=== PATIENT | female | born 1990 | race Caucasian/White ===

== ENCOUNTER 2017-06-13 11:13 | Inpatient (IN) | payer OTHER ==
[2017-06-13] MEDS ORDERED: Lidocaine 1% (PF) 30 ML VIAL ONE (11:47)
[2017-06-13] MEDS ORDERED: LR / Pitocin 40 units/1000 ml 1,000 ML ONE (11:47)
[2017-06-13] MEDS ORDERED: Lidocaine 1% (PF) 30 ML VIAL SC PRN (12:16)
[2017-06-13] MEDS ORDERED: LR / Pitocin 40 units/1000 ml 1,000 ML IV PRN (12:16)
[2017-06-13] MEDS ORDERED: Lactated Ringer's 1,000 ML IV PRN (12:16)
[2017-06-13] MEDS ORDERED: HYDROcodone/Acetaminophen 5/325 mg Tablet PO PRN ×4 (12:16→20:44)
[2017-06-13] MEDS ORDERED: Promethazine HCl 25 MG/ML VIAL IM PRN (12:16)
[2017-06-13] MEDS ORDERED: Ondansetron HCl/PF 4 MG/2 ML Vial IVP PRN ×2 (12:16→20:44)
[2017-06-13] MEDS ORDERED: Ibuprofen 800 MG TAB PO PRN (12:16)
[2017-06-13 12:27] LABS: Mean Corpuscular HGB CONC 34.9 g/dL (32.0-36.0); Mean Corpuscular Hemoglobin 31.5 pg (27.0-31.0); Mean Corpuscular Volume 90.2 fl (81.0-99.0); Mean Platelet Volume 8.5 fL (7.4-10.4); Platelet Count 187 thou/uL (130-400); RBC Distribution Width 12.1 % (11.5-14.5); Red Blood Cell (RBC) Count 4.13 mill/uL (4.20-5.40); White Blood Cell (WBC) Count 15.1 thou/uL (4.8-10.8)
[2017-06-13 13:08] LABS: HBSAg Index 0.15 S/CO (0-0.99); Hep B Surf Ag Non-Reactive S/CO (NonReactive)
[2017-06-13 14:28] VITALS: BMI 33.6
[2017-06-13 16:42] LABS: Syphilis Antibody Nonreactive (Nonreactive); Syphilis Antibody Index 0.03 S/CO (<1.00 Non-Reactive)
--- NOTE | 2017-06-13 17:20 | PDOC.LDHP ---
Labor and Delivery H&P Chief complaint: contractions HPI: patient started rosa around 0600. Denies LOF and VB. reports +FM. coping well with contractions. Current gestational age (weeks): 39 Due date: 06/19/17 Dating criteria: first trimester ultrasound (size > dates on first trimester US) Grav: 3 Para: 2 OB History Details: #1 38 weeks 7#5oz M #2 40 week 7&2oz Male #3 current Current complications: none Abnormal US findings: No Past Medical History: kidney sotnes in 2005 abnormal pap smear 2015 - nml f/up pap Current medications: pre- vitamins Previous surgical history: cholecystectomy (2004) Allergies/Adverse Reactions: Allergies Allergy/AdvReac Type Severity Reaction Status Date / Time Sulfa (Sulfonamide Allergy Verified 08/16/15 17:45 Antibiotics) Social history: none - Physical Exam Vital signs reviewed and normal: yes General: breathing through contractions Heart: RRR Lungs: CTAB Abdomen: gravid Extremeties: no edema FHT: category 1 - Vaginal Exam cm dilated: 7 (by RN on admission) Effacement: 90% Station: -1 - OB Labs Blood type: A RH: positive Antibody Screen: negative HIV: negative RPR: negative HEPSAg: negative 1 hour GCT: negative GBS: negative Urine drug screen: not done Rubella: immune - Assessment L&D Assessment: term patient in labor - Plan Plan: admit to L&D
--- NOTE | 2017-06-13 17:26 | PDOC.LDPN ---
Labor & Delivery Progress Note - Subjective Subjective: comfortable (coping well with contractions) - Objective General: breathing through contractions Uterine fundus: non tender Dilation: 8 Effacement: 100% Station: -1 FHT: category 1 AROM: meconium stained fluid (thick mec) Resuscitative measures: maternal IV fluids - Assessment (1) 39 weeks gestation of Code(s): Z3A.39 - 39 WEEKS GESTATION OF Current Visit: Yes Status : Acute (2) Thick meconium stained amniotic fluid Code(s): P96.83 - MECONIUM STAINING Current Visit: Yes Status: Acute Plan: continue plan of care (Launched to continuous monitoring. Nursery notified of thick meconium. ), resuscitative measures (IV fluids)
--- NOTE | 2017-06-13 17:27 | PDOC.OPDEL ---
OB Operative/Delivery Note Delivery Dr/Surgeon: Light Pre-Delivery Diagnosis: active labor Procedure/Post Delivery Dx: spontaneous vaginal delivery Weeks gestation: 39 Anesthesia: none - Findings A Sex: male - 1 min: 8 - 5 min: 9 - Additional Findings/Plan Placenta delivered: spontaneous Repaired Obstetrical Laceration: none Estimated blood loss: 300mL Post delivery plan: routine recovery
[2017-06-13] MEDS ORDERED: LR / Pitocin 40 units/1000 ml 1,000 ML IV SCH (20:44)
[2017-06-13] MEDS ORDERED: Methylergonovine 0.2 MG/ML VIAL IM PRN (20:44)
[2017-06-13] MEDS ORDERED: Lanolin Ointment 7 GM TUBE TOP PRN (20:44)
[2017-06-13] MEDS ORDERED: Bisacodyl 10 MG SUPP PR PRN (20:44)
[2017-06-13] MEDS ORDERED: Milk Of Magnesia 30 ML UDCUP PO PRN (20:44)
[2017-06-13] MEDS ORDERED: Benzocaine/Menthol 20-0.5% 60 ML CAN TOP PRN (20:44)
[2017-06-13] MEDS ORDERED: Varicella virus, LIVE 0.5 ML VIAL SC ONE (20:44)
[2017-06-13] MEDS ORDERED: Misoprostol 200 MCG TAB VAG PRN (20:44)
[2017-06-13] MEDS ORDERED: Adacel (T-DAP) 0.5 ML VIAL IM ONE (20:44)
[2017-06-13] MEDS: Ibuprofen 800 MG TAB PO SCH (22:22)
[2017-06-13] MEDS: Docusate Calcium (SURFAK) 240 MG CAP PO SCH (22:22)
[2017-06-14] MEDS: Ibuprofen 800 MG TAB PO SCH ×2 (05:20→13:20)
[2017-06-14 05:58] LABS: Hemoglobin 11.6 g/dL (12.0-16.0); Mean Corpuscular HGB CONC 33.8 g/dL (32.0-36.0); Mean Corpuscular Hemoglobin 31.1 pg (27.0-31.0); Mean Platelet Volume 8.5 fL (7.4-10.4); Platelet Count 189 thou/uL (130-400); RBC Distribution Width 12.1 % (11.5-14.5); Red Blood Cell (RBC) Count 3.74 mill/uL (4.20-5.40); White Blood Cell (WBC) Count 15.4 thou/uL (4.8-10.8)
[2017-06-14] MEDS: Docusate Calcium (SURFAK) 240 MG CAP PO SCH (08:39)
[2017-06-14] MEDS: Ferrous Sulfate 325 MG TAB PO SCH ×2 (08:40→09:42)
[2017-06-14 11:39] VITALS: BP 121/79; TEMP 97.9
== END 2017-06-14 19:00 | disposition home or self-care (01) | DRG 775 ==
LOC: L&D/OP 11:13 → L&D-LIB 11:45 → 3SW 20:07
PROVIDERS: ADMIT Student in an Organized Health Care Education/Training Program; ATTEND Student in an Organized Health Care Education/Training Program
PROC: 10E0XZZ Delivery of Products of Conception, External Approach (ICD-10-PCS; principal; 2017-06-13)
DX: O77.0 Labor and delivery complicated by meconium in amniotic fluid (principal); Z37.0 Single live birth; Z3A.39 39 weeks gestation of pregnancy
CPT/HCPCS: 36415; 85027; 86780; 87340; 99285; J2001

== ENCOUNTER 2019-02-11 14:42 | Outpatient (CLI) | payer OTHER ==
--- NOTE | 2019-02-11 17:01 | ULT ---
ABDOMINAL ULTRASOUND: 02/11/19 INDICATIONS: Abnormal liver function test. The patient is post cholecystectomy in 2002. Common duct is prominent but normal caliber for post cho lecystectomy status. The liver appears unremarkable with no focal liver lesion. Spleen is mildly enlarged measuring 13 cm. The visualized aorta and IVC unremarkable. The visualized pancreas unremarkable although pancreas is mostly obscured. Left kidney is unremarkable. No hydronephrosis. IMPRESSION: Borderline splenomegaly. Exam otherwise unremarkable. POS: [facility]
== END 2019-02-11 14:43 | disposition home or self-care (01) ==
LOC: ULT 14:42
PROVIDERS: ATTEND Nurse Practitioner Family
DX: R94.5 Abnormal results of liver function studies (principal); R82.998 Other abnormal findings in urine; R11.0 Nausea; R16.1 Splenomegaly, not elsewhere classified
CPT/HCPCS: 76700

== ENCOUNTER 2019-02-25 11:41 | Day surgery (SDC) | payer OTHER ==
[2019-02-24 11:46] VITALS: BMI 32.5
[2019-02-25] MEDS ORDERED: Levofloxacin 500 mg/D5W 100 ml Premix Bag ONE (13:24)
[2019-02-25] MEDS ORDERED: Iothalamate Meglumine 60% 50 ML VIAL FS ONE (13:44)
[2019-02-25] MEDS ORDERED: Indomethacin 50 MG SUPP ONE (13:44)
[2019-02-25] MEDS ORDERED: cefTRIAXone\\ROCEPHIN 2 GM VIAL ONE (13:57)
[2019-02-25] MEDS ORDERED: Sodium Chloride 0.9% 100 ML ONE (13:57)
--- NOTE | 2019-02-25 15:13 | RAD ---
EXAM: XR ERCP PROVIDED CLINICAL HISTORY: Elevated liver function tests, itching. COMPARISON: None FINDINGS/IMPRESSION: 7 intraoperative fluoroscopic images from ERCP are submitted for interpretation. Initial image demons trates cannulation of the common duct with opacification of the common duct and intrahepatic bile ducts. There is mild dilatation of the common duct and most proximal intrahepatic bile ducts. There i s a rounded filling defect seen at the confluence of the right and left hepatic ducts which may represent a small calculus versus gas bubble. Subsequent imaging demonstrates balloon catheter in [place] ce within the distal common duct. Images demonstrating free spill of contrast into the duodenum are not submitted for interpretation. Surgical clips related to cholecystectomy are noted. Correlation wi intraoperative findings is recommended.
[2019-02-25] MEDS ORDERED: Promethazine HCl 25 MG/ML VIAL ONE (15:19)
--- NOTE | 2019-02-25 18:14 | OP ---
DATE OF PROCEDURE: 02/25/2019 PROCEDURES PERFORMED: Endoscopic retrograde cholangiopancreatography with sphincterotomy and stone extraction. PREMEDICATION: Given by Anesthesiology Department. PREPROCEDURE DIAGNOSES: 1. Abnormal liver function tests. 2. Epigastric pain followed by jaundice and dark urine, suggestive choledocholithiasis. POSTPROCEDURE DIAGNOSIS: Choledocholithiasis. DESCRIPTION OF PROCEDURE: Written consents were obtained prior to procedure. Risks, not limited to bleeding, perforation, and pancreatitis were discussed with the patient in clinic prior to scheduling. After adequate sedation, a side-viewing endoscope was advanced down the stomach through the pylorus into the duodenum. The ampulla was visualized and appeared normal. Selective cannulation was performed using a 0.035 guidewire. The cannulation was successful into the common bile duct. The pancreatic duct was never entered nor visualized. Injection contrast showed a uniformly dilated intrahepatic and common bile duct with greatest diameter to 15 mm. The distal duct tapered very narrowedly. A single filling defect was noted. A generous sphincterotomy was performed at 12 o'clock position with good hemostasis. A 15 mm balloon was then used to extract the stone, but it was unsuccessful getting to the ampulla. A 12 mm balloon was then used to go to extract the stone, which disintegrated into multiple fragments. Repeat cholangiogram was performed and was normal without any further filling defect. There was small flow of contrast. Multiple stone debris was extracted. The patient tolerated the procedure well without any complication. ASSESSMENT: Choledocholithiasis, status post sphincterotomy and extraction. PLAN: Observe the patient with repeat LFT in one week. Job ID: [id number]
== END 2019-02-25 17:20 | disposition home or self-care (01) ==
LOC: SDC 11:41
PROVIDERS: ATTEND Internal Medicine Gastroenterology
PROC: 0FC98ZZ Extirpation of Matter from Common Bile Duct, Via Natural or Artificial Opening Endoscopic (ICD-10-PCS; principal; 2019-02-25)
DX: K80.50 Calculus of bile duct without cholangitis or cholecystitis without obstruction (principal); Z87.891 Personal history of nicotine dependence; Z88.2 Allergy status to sulfonamides
CPT/HCPCS: 74330; J0696; J1610; J1956; J2550; J3490

== ENCOUNTER 2022-01-11 07:47 | Outpatient (CLI) | payer OTHER | END 2022-01-11 07:48 | disposition home or self-care (01) | LOC: SCSMRI 07:47 | PROVIDERS: ATTEND Physician Assistant Medical | DX: K80.50 Calculus of bile duct without cholangitis or cholecystitis without obstruction (principal); R94.5 Abnormal results of liver function studies; K83.8 Other specified diseases of biliary tract | CPT/HCPCS: 74183 ==

== ENCOUNTER 2022-01-18 11:00 | Day surgery (SDC) | payer OTHER ==
[2022-01-17 12:09] VITALS: BMI 34.3
[2022-01-18] MEDS ORDERED: fentaNYL Citrate/PF 100 MCG/2 ML SYRINGE ONE (12:06)
[2022-01-18] MEDS ORDERED: Dexmedetomidine 200 MCG/2 ML VIAL ONE (12:06)
[2022-01-18] MEDS ORDERED: Iopamidol 30 ML ONE (12:38)
[2022-01-18] MEDS ORDERED: Indomethacin 50 MG SUPP ONE (12:39)
[2022-01-18] MEDS ORDERED: Sodium Chloride 0.9% 100 ML ONE (12:58)
[2022-01-18] MEDS ORDERED: cefTRIAXone\\ROCEPHIN 2 GM VIAL ONE (12:58)
[2022-01-18] MEDS ORDERED: PROPOFOL 200 MG/20 ML VIAL ONE (13:06)
[2022-01-18] MEDS ORDERED: Rocuronium Bromide 10 MG/ML (10ML VIAL) ONE (13:06)
[2022-01-18] MEDS ORDERED: Dexamethasone 20 MG/5 ML VIAL ONE (13:06)
[2022-01-18] MEDS ORDERED: Lidocaine 1% MPF 2 ML VIAL ONE (13:06)
[2022-01-18] MEDS ORDERED: Ondansetron PF 4 MG/2 ML Vial ONE (13:06)
[2022-01-18] MEDS ORDERED: SUGAMMADEX SODIUM 200 MG/2 ML VIAL ONE (13:48)
[2022-01-18] MEDS ORDERED: Fentanyl 100 MCG/2 ML VIAL ONE (14:09)
== END 2022-01-18 16:15 | disposition home or self-care (01) ==
LOC: SDC 11:00
PROVIDERS: ATTEND Internal Medicine Gastroenterology
PROC: 0FC98ZZ Extirpation of Matter from Common Bile Duct, Via Natural or Artificial Opening Endoscopic (ICD-10-PCS; principal; 2022-01-18)
DX: K80.50 Calculus of bile duct without cholangitis or cholecystitis without obstruction (principal); Z88.2 Allergy status to sulfonamides
CPT/HCPCS: 74330; J0696; J1100; J2405; J2704; J3010; J3490; Q9967

== ENCOUNTER 2022-01-20 20:46 | Emergency (ER) | payer OTHER ==
[2022-01-20 22:26] LABS: #Basophils 0.1 thou/uL (0.0-0.2); #Eosinphils 0.1 thou/uL (0.0-0.7); #Lymphocytes 3.7 thou/uL (1.20-3.40); #Monocytes 0.5 thou/uL (0.11-0.59); #Neutrophils 6.2 thou/uL (1.40-6.50); %Basophils 0.7 % (0.0-1.0); %Eosinophils 0.7 % (0.0-10.0); %Lymphocytes 34.9 % (21.0-51.0); %Monocytes 5.1 % (0.0-10.0); %Neutrophils 58.6 % (42.0-75.0); Hemoglobin 14.4 g/dL (12.0-16.0); Mean Corpuscular HGB CONC 33.9 g/dL (32.0-36.0); Mean Corpuscular Hemoglobin 31.6 pg (27.0-31.0); Mean Corpuscular Volume 93.2 fL (78.0-98.0); Mean Platelet Volume 8.2 fL (7.4-10.4); Platelet Count 231 thou/uL (130-400); RBC Distribution Width 11.3 % (11.5-14.5); Red Blood Cell (RBC) Count 4.55 mill/uL (4.20-5.40); White Blood Cell (WBC) Count 10.6 thou/uL (4.8-10.8)
[2022-01-20 22:49] LABS: ALT (SGPT) 93 U/L (8-55); AST (SGOT) 43 U/L (5-34); Albumin 4.4 g/dL (3.5-5.0); Alkaline Phosphatase 75 U/L (40-110); Anion Gap 14 mmol/L (10-20); BUN (Urea Nitrogen) 14 mg/dL (7.0-18.7); Bilirubin, Total 0.3 mg/dL (0.2-1.2); Calc. Creatinine Clearance 0 mL/min (70-130); Calcium 9.7 mg/dL (7.8-10.44); Carbon Dioxide 23 mmol/L (22-29); Chloride 107 mmol/L (98-107); Estimated GFR 103; Globulin 2.8 g/dL (2.4-3.5); Glucose 79 mg/dL (70-105); Potassium 3.5 mmol/L (3.5-5.1); Protein, Total 7.2 g/dL (6.0-8.3); Sodium 140 mmol/L (136-145)
[2022-01-20 23:11] LABS: BHCG - Serum Negative (NEGATIVE); Pregs Control Background? CLEAR/WHITE (CLR/WHITE); Pregs Control Bar Appear? YES (CONTROL BAR)
[2022-01-20 23:56] LABS: Bilirubin Negative (Negative); Blood, Urine Negative (Negative); Clarity Clear (Clear); Glucose, Urine (Dipstick) Normal (Negative); Ketone, Urine Negative (Negative); Leukocyte Negative Leu/uL (Negative); Nitrite Negative (Negative); Protein, Urine (Dipstick) Negative (Neg-Trace); Specific Gravity, Urine 1.015 (1.002-1.036); Urobilinogen Normal mg/dL (Less than 2); pH, Urine 6.5 (5.0-9.0)
[2022-01-20 23:57] LABS: Pregnancy Test - Urine (BHCG) Negative (Negative); Pregu Control Background? CLEAR/WHITE (CLR/WHITE); Pregu Control Bar Appear? YES (CONTROL BAR); Specific Gravity 1.015 (1.002-1.036)
[2022-01-21] MEDS ORDERED: Dicyclomine 20 MG TAB ONE (01:11)
[2022-01-21] MEDS ORDERED: Ketorolac Tromethamine 30 MG/ML VIAL ONE (01:12)
== END 2022-01-21 00:18 | disposition home or self-care (01) ==
LOC: ERS 20:46
DX: R10.13 Epigastric pain (principal)
CPT/HCPCS: 36415; 71045; 80053; 81003; 81025; 83690; 84703; 85025; J1885

== ENCOUNTER 2023-01-30 07:45 | Outpatient (CLI) | payer BC | END 2023-01-30 07:46 | disposition home or self-care (01) | LOC: MRI 07:45 → SCSMRI 07:46 | PROVIDERS: ATTEND Physician Assistant Medical | DX: R10.13 Epigastric pain (principal); R11.2 Nausea with vomiting, unspecified; K80.50 Calculus of bile duct without cholangitis or cholecystitis without obstruction | CPT/HCPCS: 74183 ==